=== PATIENT | female | born 1940 | race African-American/Black ===

== ENCOUNTER 2023-08-14 06:58 | Inpatient (IN) | payer OTHER, MEDICARE ==
[~2023-08-14] VITALS: Ht 160 cm; Wt 84.4 kg
[2023-08-14 07:00] VITALS: O2SAT 100
[2023-08-14] MEDS ORDERED: LEVOFLOXACIN 500MG PREMIX 100 ML IV ONE (08:45)
[2023-08-14] MEDS ORDERED: ONDANSETRON HCL 4MG/2ML INJ IV ONE (08:45)
[2023-08-14] MEDS ORDERED: SODIUM CHLORIDE 0.9% 1000ML BAG (SEPSIS BOLUS) IV ONE (08:45)
[2023-08-14] MEDS ORDERED: MORPHINE SULFATE 4 MG/ML CPJ (NOT FOR IM USE) IV ONE (08:45)
[2023-08-14] MEDS: VANCOMYCIN 1G PREMIX 200 ML IV SCH ×2 (10:30→11:53)
[2023-08-14 11:07] LABS: DIFFERENTIAL COMMENT 1; MEAN CORPUSCULAR HEMOGLOBIN 27.6 pg (28.0-32.0); MEAN CORPUSCULAR HGB CONC 31.5 g/dL (31.0-37.0); MEAN CORPUSCULAR VOLUME 87.7 fL (81.0-99.0); MEAN PLATELET VOLUME 7.3 fl (7.4-10.4); PLATELET 326 x1000/uL (130-400); RED BLOOD CELL COUNT 3.99 mill/uL (4.2-5.4); RED CELL DISTRIBUTION WIDTH 19.2 % (11.6-14.6); WHITE BLOOD COUNT 16.2 x1000/uL (4.5-11.0)
[2023-08-14] MEDS ORDERED: DILTIAZEM HCL 5MG/ML 5ML VIAL IV ONE (11:15)
[2023-08-14 11:17] LABS: INR 1.3; PROTHROMBIN TIME 13.6 sec (9.6-11.0)
[2023-08-14 11:28] LABS: ALANINE AMINOTRANSFERASE 76 IU/L (10-49); ALBUMIN 3.5 g/dL (3.2-4.8); ASPARTATE AMINOTRANSFERASE 52 IU/L (<34); BILIRUBIN TOTAL 0.9 mg/dL (0.1-1.0); CALCIUM 9.2 mg/dL (8.7-10.4); CARBON DIOXIDE 23 mEq/L (21-32); CHLORIDE 108 mEq/L (98-107); CREATININE 1.5 mg/dL (0.6-1.0); GLUCOSE 105 mg/dL (70-105); POTASSIUM 3.9 mEq/L (3.5-5.1); PROTEIN TOTAL 7.6 g/dL (6.0-8.3); SODIUM 139 mEq/L (136-145); UREA NITROGEN BLOOD 49 mg/dL (9-23)
[2023-08-14 11:37] LABS: ANISOCYTOSIS 2+; HYPOCHROMASIA 1+; PLATELET ESTIMATE NORMAL
[2023-08-14 12:22] LABS: CLARITY URINE CLEAR (CLEAR); COLOR URINE YELLOW (YELLOW); GLUCOSE URINE NEGATIVE (NEGATIVE); KETONES URINE NEGATIVE (NEGATIVE); LEUKOCYTE ESTERASE URINE NEGATIVE (NEGATIVE); NITRITE URINE NEGATIVE (NEGATIVE); OCCULT BLOOD URINE NEGATIVE (NEGATIVE); PH URINE 5.5 (4.5-8.0); PROTEIN URINE NEGATIVE (NEGATIVE); SPECIFIC GRAVITY URINE 1.015 (1.005-1.030); UROBILINOGEN URINE 0.2 E.U./dL (0.2-1.0)
[2023-08-14] MEDS ORDERED: HYDROCODONE/ACETAMINOPHEN 7.5/325MG TABLET PO ONE (13:45)
[2023-08-14] MEDS ORDERED: ACETAMINOPHEN 325MG TABLET PO PRN (14:15)
[2023-08-14] MEDS ORDERED: DOCUSATE SODIUM 100MG CAPSULE PO PRN (14:15)
[2023-08-14] MEDS ORDERED: KETOROLAC 30MG/ML VIAL IV PRN (14:15)
[2023-08-14] MEDS ORDERED: IPRATROPIUM/ALBUTEROL 0.5-3(2.5)MG/3ML NEB HHN PRN (14:15)
[2023-08-14] MEDS ORDERED: MAGNESIUM/ALUMINUM HYDROXIDE/SIMETHICONE 30ML UDC PO PRN (14:15)
[2023-08-14] MEDS ORDERED: ONDANSETRON HCL 4MG/2ML INJ IV PRN (14:15)
[2023-08-14] MEDS ORDERED: CLONIDINE 0.1MG TABLET PO PRN (14:15)
[2023-08-14] MEDS ORDERED: GUAIFENESIN 200MG/10ML SUGAR FREE UDC PO PRN (14:15)
[2023-08-14] MEDS ORDERED: DIPHENHYDRAMINE 50MG/ML VIAL IV PRN (14:15)
[2023-08-14] MEDS: PANTOPRAZOLE SODIUM 40 MG/VIAL IV SCH (14:37)
[2023-08-14 15:00] VITALS: BP 130/50; PULSE 99; RESP 23; TEMP 97.8
[2023-08-14 16:00] VITALS: BP 92/73; PULSE 110; RESP 34; TEMP 98
[2023-08-14] MEDS: KETOROLAC 15MG/ML VIAL IV PRN (17:00)
[2023-08-14 18:00] VITALS: BP 94/64; PULSE 97; RESP 13
[2023-08-14] MEDS ORDERED: PIPERACILLIN/TAZO 3.375G/50ML 50 ML IV NR (18:00)
[2023-08-14] MEDS: CLINDAMYCIN HCL 150MG CAPSULE PO SCH (18:57)
[2023-08-14 19:16] LABS: HEPATITIS B SURFACE ANTIGEN NEGATIVE (Negative); HEPATITIS C AB NON REACTIVE (Neg) (Negative)
[2023-08-14 20:00] VITALS: BP 91/77; PULSE 96; RESP 20; TEMP 96.9
[2023-08-14 22:00] VITALS: BP 92/69; PULSE 94; RESP 21
[2023-08-14] MEDS: PIPERACILLIN/TAZO 3.375G/50ML 50 ML IV SCH (22:50)
[2023-08-14 23:53] LABS: CREATINE KINASE 92 IU/L (34-145)
[2023-08-15] VITALS (9 sets, daily range): BP systolic 85–104; BP diastolic 57–77; PULSE 85–105; RESP 15–27; TEMP 96.6–98.6
[2023-08-15 00:02] LABS: TROPONIN I HIGH SENSITIVITY 76 ng/L (3.0-34)
[2023-08-15] MEDS: ACETAMINOPHEN 325MG TABLET PO PRN ×2 (04:29→09:35)
[2023-08-15] MEDS: CLINDAMYCIN HCL 150MG CAPSULE PO SCH ×4 (05:45→18:00)
[2023-08-15] MEDS: PIPERACILLIN/TAZO 3.375G/50ML 50 ML IV SCH ×3 (05:46→21:45)
[2023-08-15] MEDS: KETOROLAC 15MG/ML VIAL IV PRN ×2 (07:23→18:15)
[2023-08-15] MEDS ORDERED: VANCOMYCIN 750MG PREMIX 150 ML IV SCH (08:00)
[2023-08-15 08:52] LABS: HEMATOCRIT. 32.1 % (36.0-48.0); HEMOGLOBIN. 10.1 g/dL (12.0-16.0); MEAN CORPUSCULAR HEMOGLOBIN 28.1 pg (28.0-32.0); MEAN CORPUSCULAR HGB CONC 31.3 g/dL (31.0-37.0); MEAN CORPUSCULAR VOLUME 89.7 fL (81.0-99.0); MEAN PLATELET VOLUME 7.9 fl (7.4-10.4); PLATELET 209 x1000/uL (130-400); RED BLOOD CELL COUNT 3.58 mill/uL (4.2-5.4); RED CELL DISTRIBUTION WIDTH 19.9 % (11.6-14.6); WHITE BLOOD COUNT 17.2 x1000/uL (4.5-11.0)
[2023-08-15] MEDS ORDERED: NALOXONE HCL 0.4MG/ML VIAL IV PRN (09:00)
[2023-08-15 09:01] LABS: DIFFERENTIAL COMMENT 1
[2023-08-15] MEDS: PANTOPRAZOLE SODIUM 40 MG/VIAL IV SCH (09:11)
[2023-08-15 09:16] LABS: ALANINE AMINOTRANSFERASE 58 IU/L (10-49); ALBUMIN 3.1 g/dL (3.2-4.8); ASPARTATE AMINOTRANSFERASE 43 IU/L (<34); BILIRUBIN TOTAL 0.9 mg/dL (0.1-1.0); CALCIUM 8.8 mg/dL (8.7-10.4); CARBON DIOXIDE 19 mEq/L (21-32); CHLORIDE 108 mEq/L (98-107); CHOLESTEROL 60 mg/dL (<200); CREATINE KINASE 70 IU/L (34-145); CREATININE 1.2 mg/dL (0.6-1.0); GLUCOSE 78 mg/dL (70-105); HDL CHOLESTEROL 25 mg/dL (>65); LDL CHOLESTEROL 28 mg/dL (5-100); POTASSIUM 4.2 mEq/L (3.5-5.1); SODIUM 137 mEq/L (136-145); T4 FREE 0.83 ng/dL (0.89-1.76); THYROID STIMULATING HORMONE 1.28 uIU/mL (0.55-4.78); TRIGLYCERIDE 63 mg/dL (0-150)
[2023-08-15 09:22] LABS: TROPONIN I HIGH SENSITIVITY 69 ng/L (3.0-34)
[2023-08-15] MEDS: VANCOMYCIN 1G PREMIX 200 ML IV SCH (09:31)
[2023-08-15] MEDS ORDERED: DEXT 5%/0.9% NACL 1,000 ML IV SCH (10:15)
[2023-08-15 13:20] LABS: ANISOCYTOSIS 1+
[2023-08-15 13:22] LABS: PLATELET ESTIMATE NORMAL
[2023-08-15] MEDS: SODIUM HYPOCHLORITE SOLUTION (0.5%)FULL STRENGTH TOP SCH (13:30)
[2023-08-15 16:53] LABS: *AMPHETAMINES SCREEN URINE NEGATIVE (NEGATIVE); *BARBITURATES SCREEN URINE NEGATIVE (NEGATIVE); *BENZODIAZEPINES SCREEN URINE NEGATIVE (NEGATIVE); *COCAINE SCREEN URINE NEGATIVE (NEGATIVE); CANNABINOID URINE SCREEN NEGATIVE (NEGATIVE); ECSTASY MDMA SCREEN URINE NEGATIVE (NEGATIVE); METHADONE URINE SCREEN Neg (NEGATIVE); OPIATES URINE SCREEN PRESUMPTIVE POSITIVE (NEGATIVE); PHENCYCLIDINE URINE SCREEN NEGATIVE (NEGATIVE)
[2023-08-15 18:55] LABS: UREA NITROGEN BLOOD 37 mg/dL (9-23)
[2023-08-16] VITALS (8 sets, daily range): BP systolic 92–131; BP diastolic 55–96; PULSE 93–110; RESP 12–24; TEMP 97.3–98.7
[2023-08-16] MEDS: CLINDAMYCIN HCL 150MG CAPSULE PO SCH ×4 (00:23→18:39)
[2023-08-16] MEDS: PIPERACILLIN/TAZO 3.375G/50ML 50 ML IV SCH ×2 (06:21→12:36)
[2023-08-16] MEDS: MORPHINE SULFATE 2 MG/ML CPJ (NOT FOR IM USE) IV PRN (06:22)
[2023-08-16] MEDS ORDERED: LIDOCAINE HCL 1% 20ML VIAL (Pyxis) INJ ONE (07:06)
[2023-08-16] MEDS ORDERED: BUPIVACAINE HCL/PF 0.5% (5MG/ML) 10ML ONE (07:07)
[2023-08-16] MEDS ORDERED: ETOMIDATE 2MG/ML 10ML VIAL IV ONE (07:43)
[2023-08-16] MEDS ORDERED: DEXAMETHASONE 4MG/ML 1ML VIAL ONE (07:43)
[2023-08-16] MEDS ORDERED: CEFAZOLIN SODIUM 1000MG/VIAL ONE (07:43)
[2023-08-16] MEDS ORDERED: MIDAZOLAM HCL 2 MG/2 ML VIAL ONE (07:43)
[2023-08-16] MEDS ORDERED: FENTANYL CITRATE/PF 50MCG/ML 2ML VIAL ONE ×3 (07:44→12:13)
[2023-08-16] MEDS ORDERED: ROPIVACAINE HCL 1% 20 ML VIAL EPI ONE (07:48)
[2023-08-16] MEDS ORDERED: HYDROMORPHONE HCL/PF 2MG/ML CPJ IV PRN (08:30)
[2023-08-16] MEDS ORDERED: LABETALOL 5MG/ML SYR 20 MG/4 ML SYRINGE IV PRN (08:30)
[2023-08-16] MEDS ORDERED: ONDANSETRON HCL 4MG/2ML INJ IV PRN (08:30)
[2023-08-16] MEDS ORDERED: MEPERIDINE HCL/PF 25MG/ML CPJ IV PRN (08:30)
[2023-08-16] MEDS ORDERED: SODIUM HYPOCHLORITE (0.25%) 480ML SOLUTION (HALF STRENGTH) TOP NR (08:30)
[2023-08-16] MEDS ORDERED: HYDROMORPHONE HCL/PF 2MG/ML CPJ ONE (08:33)
[2023-08-16] MEDS: SODIUM HYPOCHLORITE SOLUTION (0.5%)FULL STRENGTH TOP SCH (09:00)
[2023-08-16] MEDS: FAMOTIDINE 20MG/2ML VIAL IV SCH (09:00)
[2023-08-16] MEDS ORDERED: PROPOFOL 200MG/20ML VIAL IV ONE (11:55)
[2023-08-16] MEDS ORDERED: METO25TA6 PO (12:01)
[2023-08-16] MEDS: METOPROLOL TARTRATE 25MG TABLET PO SCH (12:33)
[2023-08-16] MEDS: ACETAMINOPHEN 325MG TABLET PO PRN (20:30)
[2023-08-17] MEDS: METOPROLOL TARTRATE 25MG TABLET PO SCH ×3 (00:15→23:17)
[2023-08-17 01:00] VITALS: BP 95/48; PULSE 89; RESP 18; TEMP 98
[2023-08-17] MEDS: VANCOMYCIN 1G PREMIX 200 ML IV SCH (01:42)
[2023-08-17] MEDS: CLINDAMYCIN HCL 150MG CAPSULE PO SCH ×5 (01:43→23:17)
[2023-08-17] MEDS: PIPERACILLIN/TAZO 3.375G/50ML 50 ML IV SCH ×4 (01:43→23:17)
[2023-08-17] MEDS: KETOROLAC 15MG/ML VIAL IV PRN ×2 (01:47→07:31)
[2023-08-17 04:00] VITALS: BP 92/57; RESP 20; TEMP 98.3
[2023-08-17 06:51] LABS: HEMATOCRIT. 30.6 % (36.0-48.0); MEAN CORPUSCULAR HEMOGLOBIN 27.3 pg (28.0-32.0); MEAN CORPUSCULAR HGB CONC 29.6 g/dL (31.0-37.0); MEAN CORPUSCULAR VOLUME 92.4 fL (81.0-99.0); MEAN PLATELET VOLUME 7.6 fl (7.4-10.4); PLATELET 234 x1000/uL (130-400); RED BLOOD CELL COUNT 3.31 mill/uL (4.2-5.4); RED CELL DISTRIBUTION WIDTH 20.2 % (11.6-14.6); WHITE BLOOD COUNT 15.3 x1000/uL (4.5-11.0)
[2023-08-17 07:11] LABS: CALCIUM 8.6 mg/dL (8.7-10.4); CREATININE 1.2 mg/dL (0.6-1.0); POTASSIUM 4.1 mEq/L (3.5-5.1)
[2023-08-17 07:30] LABS: DIFFERENTIAL COMMENT 1
[2023-08-17 08:00] VITALS: BP 98/77; PULSE 77; RESP 18; TEMP 96.9
[2023-08-17] MEDS: FAMOTIDINE 20MG/2ML VIAL IV SCH (08:36)
[2023-08-17] MEDS: MORPHINE SULFATE 2 MG/ML CPJ (NOT FOR IM USE) IV PRN ×2 (08:42→13:57)
[2023-08-17] MEDS: SODIUM HYPOCHLORITE SOLUTION (0.5%)FULL STRENGTH TOP SCH (08:54)
[2023-08-17 12:00] VITALS: BP 99/48; PULSE 77; RESP 18; TEMP 96.9
[2023-08-17 15:23] LABS: PLATELET ESTIMATE NORMAL
[2023-08-17 16:00] VITALS: BP 135/85; PULSE 98; TEMP 97.9
[2023-08-17] MEDS: VANCOMYCIN 750MG PREMIX 150 ML IV SCH (23:18)
[2023-08-18] VITALS: BP 124/68; PULSE 97; RESP 20; TEMP 97.1
[2023-08-18] MEDS: MORPHINE SULFATE 2 MG/ML CPJ (NOT FOR IM USE) IV PRN ×3 (02:47→19:08)
[2023-08-18 04:00] VITALS: BP 102/69; PULSE 135; RESP 20; TEMP 97.5
[2023-08-18] MEDS ORDERED: DIGOXIN 500MCG/2ML AMP IV NR ×2 (04:15→17:45)
[2023-08-18] MEDS: PIPERACILLIN/TAZO 3.375G/50ML 50 ML IV SCH ×3 (06:16→23:33)
[2023-08-18] MEDS: CLINDAMYCIN HCL 150MG CAPSULE PO SCH ×3 (06:16→17:33)
[2023-08-18 07:28] VITALS: BP 135/72; PULSE 130; RESP 18; TEMP 98
[2023-08-18] MEDS: FAMOTIDINE 20MG/2ML VIAL IV SCH (08:04)
[2023-08-18] MEDS: SODIUM HYPOCHLORITE SOLUTION (0.5%)FULL STRENGTH TOP SCH (08:05)
[2023-08-18] MEDS ORDERED: METOPROLOL TARTRATE 25MG TABLET PO SCH (09:00)
[2023-08-18 12:00] VITALS: BP 114/86; PULSE 92; RESP 18; RESP 19; TEMP 97.6; TEMP 98
[2023-08-18 12:12] LABS: HEMATOCRIT. 31.3 % (36.0-48.0); MEAN CORPUSCULAR HGB CONC 31.9 g/dL (31.0-37.0); MEAN CORPUSCULAR VOLUME 87.6 fL (81.0-99.0); MEAN PLATELET VOLUME 7.4 fl (7.4-10.4); PLATELET 297 x1000/uL (130-400); RED BLOOD CELL COUNT 3.57 mill/uL (4.2-5.4); RED CELL DISTRIBUTION WIDTH 19.5 % (11.6-14.6); WHITE BLOOD COUNT 14.5 x1000/uL (4.5-11.0)
[2023-08-18 12:20] LABS: DIFFERENTIAL COMMENT 1
[2023-08-18 12:40] LABS: CALCIUM 9.2 mg/dL (8.7-10.4); CREATININE 1.1 mg/dL (0.6-1.0); POTASSIUM 4.8 mEq/L (3.5-5.1)
[2023-08-18 16:00] VITALS: BP 116/75; PULSE 111; RESP 16; TEMP 98
[2023-08-18 17:17] LABS: ANISOCYTOSIS 1+; PLATELET ESTIMATE NORMAL
[2023-08-18 20:00] VITALS: BP 100/63; PULSE 95; RESP 18; TEMP 98.1
[2023-08-18] MEDS ORDERED: MICAFUNGIN 100 MG in SODIUM CHLORIDE 0.9% 100 ML IV SCH (20:00)
[2023-08-18] MEDS: METOPROLOL TARTRATE 50MG TABLET PO SCH (21:00)
[2023-08-18] MEDS: VANCOMYCIN 750MG PREMIX 150 ML IV SCH (21:18)
[2023-08-19] VITALS: BP 139/86; PULSE 89; RESP 18; TEMP 98.1
[2023-08-19 04:00] VITALS: BP 138/90; PULSE 110; RESP 18; TEMP 98.1
[2023-08-19] MEDS: PIPERACILLIN/TAZO 3.375G/50ML 50 ML IV SCH ×2 (05:21→14:00)
[2023-08-19 08:00] VITALS: BP 142/87; PULSE 99; RESP 22; TEMP 98
[2023-08-19] MEDS: METOPROLOL TARTRATE 50MG TABLET PO SCH (09:10)
[2023-08-19] MEDS: SODIUM HYPOCHLORITE SOLUTION (0.5%)FULL STRENGTH TOP SCH (09:10)
[2023-08-19] MEDS: FAMOTIDINE 20MG/2ML VIAL IV SCH (09:11)
[2023-08-19] MEDS ORDERED: LIDOCAINE HCL 1% 10 MG/ML 10ML VIAL ONE (10:12)
[2023-08-19] MEDS: MORPHINE SULFATE 2 MG/ML CPJ (NOT FOR IM USE) IV PRN (11:58)
[2023-08-19 12:00] VITALS: BP 119/53; PULSE 70; RESP 20; TEMP 98.2
[2023-08-19 16:00] VITALS: BP 122/72; PULSE 88; RESP 20; TEMP 97.6
[2023-08-19] MEDS ORDERED: METOPROLOL TARTRATE 50MG TABLET PO SCH (21:00)
== END 2023-08-19 21:49 | disposition short-term general hospital (02) | DRG 853 ==
LOC: ER 07:10 → 5EST 15:07 → 7EST 08-16 23:35
PROVIDERS: ADMIT Internal Medicine; ATTEND Internal Medicine
PROC: 0QBQ0ZZ Excision of Right Toe Phalanx, Open Approach (ICD-10-PCS; principal; 2023-08-16)
PROC: 02HV33Z Insertion of Infusion Device into Superior Vena Cava, Percutaneous Approach (ICD-10-PCS; 2023-08-19)
PROC: B548ZZA Ultrasonography of Superior Vena Cava, Guidance (ICD-10-PCS; 2023-08-19)
DX: A41.9 Sepsis, unspecified organism (principal); A48.0 Gas gangrene; I21.4 Non-ST elevation (NSTEMI) myocardial infarction; E11.52 Type 2 diabetes mellitus with diabetic peripheral angiopathy with gangrene; L03.115 Cellulitis of right lower limb; I70.262 Atherosclerosis of native arteries of extremities with gangrene, left leg; T79.7XXA Traumatic subcutaneous emphysema, initial encounter; I48.91 Unspecified atrial fibrillation; J44.9 Chronic obstructive pulmonary disease, unspecified; I10 Essential (primary) hypertension; R26.9 Unspecified abnormalities of gait and mobility; E11.621 Type 2 diabetes mellitus with foot ulcer; D64.9 Anemia, unspecified; L97.509 Non-pressure chronic ulcer of other part of unspecified foot with unspecified severity; Z79.899 Other long term (current) drug therapy; Z79.4 Long term (current) use of insulin; Z89.519 Acquired absence of unspecified leg below knee; Z96.653 Presence of artificial knee joint, bilateral; W01.0XXA Fall on same level from slipping, tripping and stumbling without subsequent striking against object, initial encounter; X58.XXXA Exposure to other specified factors, initial encounter; Y93.89 Activity, other specified; Y92.89 Other specified places as the place of occurrence of the external cause; Y99.8 Other external cause status
CPT/HCPCS: 36415; 36573; 71045; 73090; 73522; 73590; 73620; 73700; 80048; 80053; 80061; 80202; 80305; 81003; 82550; 82962; 83605; 84145; 84439; 84443; 84484; 84520; 85025; 85651; 86705; 87070; 87075; 87076; 87077; 87106; 87186; 87340; 93005; 93306; 93923; 93971; 99291; C1725; C1893; C9113; J0690; J1100; J1160; J1170; J1200; J1885; J1956; J2248; J2250; J2270; J2405; J2543; J2704; J2795; J3010; J3370; J3490; J7030; J7042; J7050